=== PATIENT | female | born 1935 | race Caucasian/White ===

== ENCOUNTER 2016-06-01 05:55 | Emergency (ER) | payer MEDICARE ==
[~2016-06-01] VITALS: Ht 160 cm; Wt 68.0 kg
[~2016-06-01 05:55] MED LIST: ASPIRIN81 M1 PO; CALCARB 600 W/V1 TA1 PO; CALCIUM 500 W/V1 TAB PO; CALCIUM PO; CAPOTEN25 MG PO; CAPOTEN50 MG PO; CRESTOR10 MG PO; CRESTOR40 MG PO; DARVOCET N 1001 TAB PO; FLEXERIL5 MG PO; HYDROCODONE BIT1 T11 PO; LEADER ASPIRIN325 MG PO; LIPITOR20 MG PO; LISINOPRIL20 MG PO; LOMOTIL 0.025 M1 TAB PO; LOPRESSOR25 MG PO; MEDROL DOSEPAK4 MG PO; MOM30 M1 PO; MOTRIN800 MG PO; TUMS 500500 MG PO; TYLENOL500 MG PO; ULTRAM50 MG PO; VICODIN 500 MG-1 TAB PO; VITAMIN D50000 I2 PO; VITAMIN D50000 IU PO; VOLTAREN50 M1 PO; XANAX0.25 MG PO; XANAX0.5 MG PO; Zofran4 MG PO
[2016-06-01 06:26] LABS: BASO % 0.1 % (0.0-1.0); HEMATOCRIT 35.8 % (37.0-47.0); HEMOGLOBIN 12.4 g/dl (12.0-16.0); LYMPH # 1.1 10*3/uL (1.3-4.4); LYMPH % 14.4 % (27.0-41.0); MEAN CELL VOLUME 101.1 fl (81.0-99.0); MEAN CORPUSCULAR HGB CONC 34.6 g/dl (33.0-37.0); MEAN PLATELET VOLUME 9.4 fl (9.6-12.3); MONO # 0.1 10*3/uL (0.1-1.0); MONO % 1.6 % (3.0-9.0); NEUT # 6.3 10*3/uL (2.3-7.9); NEUT % 83.5 % (47.0-73.0); PLATELET COUNT AUTOMATED 245 10*3/uL (130-400); RED BLOOD COUNT 3.54 10*6/uL (4.10-5.10); RED CELL DISTRI WIDTH 12.3 % (0-14.5); WHITE BLOOD COUNT 7.5 10*3/uL (4.8-10.8)
[2016-06-01 06:33] LABS: INTERNATIONAL NORM RATIO 0.9 (2.0-3.5)
[2016-06-01 06:44] LABS: ALBUMIN 3.4 gm/dl (3.1-4.5); ALKALINE PHOSPHATASE 69 U/L (45-117); BILIRUBIN, TOTAL 0.3 mg/dl (0.2-1.0); BUN 25 mg/dl (7-24); CARBON DIOXIDE 24 mmol/L (21-32); CHLORIDE 106 mmol/L (98-107); EST GLOM FILT AFRICAN AMERICAN > 60 ml/min; GLUCOSE 179 mg/dL (65-99); SGOT/AST 17 IU/L (3-35); SGPT/ALT 16 U/L (12-78); SODIUM 142 mmol/L (136-145); TOTAL PROTEIN 7.1 gm/dL (6.4-8.2)
[2016-06-01 06:52] LABS: MAGNESIUM 2.2 mg/dL (1.5-2.1); THYROID STIM HORMONE (HS) 0.294 uIU/ml (0.358-4.75)
[2016-06-01 09:16] VITALS: BP 147/75
== END 2016-06-01 09:26 | disposition home or self-care (01) ==
LOC: ED 05:55
PROVIDERS: Emergency Medicine Emergency Medical Services
DX: E86.0 Dehydration (principal); R42 Dizziness and giddiness; I10 Essential (primary) hypertension; E78.00 Pure hypercholesterolemia, unspecified; M19.90 Unspecified osteoarthritis, unspecified site; Z79.899 Other long term (current) drug therapy; Z79.82 Long term (current) use of aspirin

== ENCOUNTER → 2016-09-25 | Outpatient (CLI) | payer MEDICARE | END | disposition home or self-care (01) | LOC: ORTHO 00:26 | DX: M17.12 Unilateral primary osteoarthritis, left knee (principal); M25.462 Effusion, left knee; R20.0 Anesthesia of skin ==

== ENCOUNTER → 2017-02-09 | Outpatient (CLI) | payer MEDICARE | END | disposition home or self-care (01) | LOC: RAD 11:14 | DX: M17.12 Unilateral primary osteoarthritis, left knee (principal); M25.462 Effusion, left knee ==

== ENCOUNTER 2017-05-09 10:56 | Inpatient (IN) | payer MEDICARE ==
[~2017-05-09] VITALS: Ht 160 cm; Wt 76.7 kg
--- NOTE | ~2017-05-09 | CON ---
[place], [place] REPORT OF CONSULTATION NAME: STEVE CONTRERAS [facility] #: [id number] UNIT #: [id number] ROOM: 412 DOCTOR: GELY PERALES ED.D (WILBER) BIRTHDATE: [birth year] DOS: 05/11/2017 HISTORY OF PRESENT ILLNESS: The patient is a 81-year-old female who was referred by the hospitalist for competency evaluation. At the present time, this patient is in [facility]. She states she is a and presently resides alone. She does have a son and a daughter. Her daughter was present during the interview. Apparently, her granddaughter is much closer to the patient and helps her make decisions. 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 The patient's family physician is Dr. Delong and her medical history is pertinent for altered mental status, dementia, hypertension, osteoarthritis, vitamin D deficiency and GERD. Her medications include ____, vitamin D, captopril, Aricept, Vistaril, lisinopril, Paxil and Crestor. She denies any significant substance abuse issues. This patient was awake, alert and oriented in all 3 spheres. She had no difficulty answering questions whatsoever. 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 The patient indicates she is not able to go home and wants to either reside with her granddaughter or go to some type of assisted living. The social work professor was in the room and is going to have the patient complete a durable power of erisa attorney for healthcare and the patient requested that her granddaughter be named her healthcare surrogate. Her short and long-term memories were mildly impaired, but overall she did fairly well. DIAGNOSES: Mild neurocognitive disorder -- Alzheimer's disease. RECOMMENDATIONS: In my opinion, at the present time, she is clearly competent to make informed healthcare decisions and wants to execute a power of erisa attorney for healthcare with her granddaughter as her surrogate. Thank you very much for this consult> GELY PERALES ED.D CM:CONSTR:REPORT OF CONSULTATION 1331 05/11/171951 interface
[2017-05-09 11:05] VITALS: BP 118/78
[2017-05-09 12:07] LABS: BASO % 0.5 % (0.0-1.0); EOS # 0.1 10*3/uL (0.0-0.4); EOS % 1.1 % (1.0-4.0); HEMATOCRIT 37.6 % (37.0-47.0); HEMOGLOBIN 12.8 g/dl (12.0-16.0); LYMPH % 23.7 % (27.0-41.0); MEAN CELL VOLUME 101.9 fl (81.0-99.0); MEAN CORPUSCULAR HGB 34.7 pg (27.0-31.0); MEAN PLATELET VOLUME 9.7 fl (9.6-12.3); MONO # 0.7 10*3/uL (0.1-1.0); MONO % 8.1 % (3.0-9.0); NEUT # 5.7 10*3/uL (2.3-7.9); NEUT % 66.1 % (47.0-73.0); PLATELET COUNT AUTOMATED 231 10*3/uL (130-400); RED BLOOD COUNT 3.69 10*6/uL (4.10-5.10); RED CELL DISTRI WIDTH 13.1 % (0-14.5); WHITE BLOOD COUNT 8.5 10*3/uL (4.8-10.8)
[2017-05-09 12:14] LABS: INTERNATIONAL NORM RATIO 0.9 (2.0-3.5)
[2017-05-09 12:21] LABS: ALBUMIN 3.6 gm/dl (3.1-4.5); ALKALINE PHOSPHATASE 79 U/L (45-117); BUN 16 mg/dl (7-24); CHLORIDE 110 mmol/L (98-107); CREATININE 0.88 mg/dL (0.55-1.02); POTASSIUM 4.1 mmol/L (3.5-5.1); SGOT/AST 17 IU/L (3-35); SGPT/ALT 18 U/L (12-78); SODIUM 143 mmol/L (136-145); TOTAL PROTEIN 7.1 gm/dL (6.4-8.2)
--- NOTE | 2017-05-09 13:12 | NUR ---
BED ASSIGNED 415/2 NOW. [facility] UNABLE TO ACCEPT REPORT AT THIS TIME, AWAITING RETURN CALL.
--- NOTE | 2017-05-09 13:18 | NUR ---
ZITHROMAX INFUSING AT TIME OF ADMISSION.
--- NOTE | 2017-05-09 13:35 | NUR ---
A 81, admitted to , under the services of MEENA High DO with a diagnosis of PNEUMONIA. Chief complaint is MENTAL STATUS CHANGE, COUGHING. Patient arrived via stretcher from ER. Monitor applied. Initial assessment completed. Vital signs taken and recorded. MEENA HIGH DO notified of admission to the unit. Orders received. See assessment for past medical history, medications and allergies. Patient and/or family oriented to unit. [address] visitation policy reviewed. Clothing/patient valuable form completed. ROSS NAJERA
[2017-05-09 13:37] VITALS: BP 126/67
[2017-05-09] MEDS ORDERED: ARICEPT5 M1 PO (14:02)
[2017-05-09] MEDS ORDERED: CAPTOPRIL25 MG PO (14:02)
[2017-05-09] MEDS ORDERED: PAXIL10 MG PO (14:03)
[2017-05-09] MEDS ORDERED: VISTARIL50 MG PO (14:03)
[2017-05-09] MEDS ORDERED: TESSALON PERLE100 MG PO (14:05)
--- NOTE | 2017-05-09 14:05 | NUR ---
MEDS VERIFIED WITH [facility]. DR STORY NOTIFIED.
[2017-05-09 16:00] VITALS: BP 137/56
--- NOTE | 2017-05-09 16:31 | NUR ---
PT RECEIVED FLU AND PNEUMONIA VACCINES.
[2017-05-09 18:09] LABS: BILIRUBIN NEGATIVE (NEGATIVE); BLOOD TRACE-LYSED (NEGATIVE); CLARITY SL CLOUDY (CLEAR); COLOR YELLOW (YELLOW); GLUCOSE NEGATIVE (NEGATIVE); KETONE NEGATIVE (NEGATIVE); LEUKO ESTERASE TRACE (NEGATIVE); NITRITE POSITIVE (NEGATIVE); PH 6.5 (5.0-9.0); SPECIFIC GRAVITY <= 1.005 (1.005-1.030); UROBILINOGEN 0.2 E.U./dl (0.2-1.0)
[2017-05-09 18:16] LABS: BACTERIA 2+; URINE AMPHETAMINES < 1000 (1000ng/ml); URINE BARBITURATES < 200 (200ng/ml); URINE BENZODIAZEPINES < 200 (200ng/ml); URINE CANNABINOIDS (THC) < 50 (50ng/ml); URINE COCAINE < 300 (300ng/ml); URINE METHADONE < 300 (300ng/ml); URINE OPIATES < 300 (300ng/ml)
[2017-05-09 18:30] LABS: URINE PHENCYCLIDINE < 25 (25ng/ml)
[2017-05-09 20:00] VITALS: BP 122/74
--- NOTE | 2017-05-09 22:14 | NUR ---
AT THIS TIME. PATIENT RIPPED IV STATED SHE HAD TO GO TO THE BATHROOM SO BAD AND COULDN'T WAIT. IV RESTARTED IN LEFT AC #22 GAUGE. TOLERATED WELL. IV FLUIDS INFUSING AGAIN WITHOUT DIFFICULTY. CALL LIGHT WITHIN REACH
[2017-05-10] VITALS: BP 137/74
--- NOTE | 2017-05-10 00:17 | NUR ---
DR. MORENO NOTIFIED OF PATIENT CONTINUING TO RIP IV OUT TO GO TO BATHROOM. INFORMED HIM THAT PATIENT IS RECIEVING FLUIDS AT 80 AN HOUR AND IS HERE FOR PNEUMONIA. STATED THAT THE PATIENT HAS NO WBC COUNT, NO ELEVATED LACTIC ACID AND A NORMAL BUN AND CREATININE, THIS NURSE ASKED IF THERE WOULD BE ANY WAY THAT THE FLUIDS CAN BE STOPPED. DR. MORENO STATED THAT HE WOULD STOP THE FLUIDS
--- NOTE | 2017-05-10 02:11 | NUR ---
24 HR chart check completed.
[2017-05-10 07:24] LABS: BASO % 0.6 % (0.0-1.0); EOS # 0.2 10*3/uL (0.0-0.4); EOS % 3.1 % (1.0-4.0); HEMATOCRIT 33.4 % (37.0-47.0); HEMOGLOBIN 11.4 g/dl (12.0-16.0); LYMPH % 28.4 % (27.0-41.0); MEAN CELL VOLUME 103.7 fl (81.0-99.0); MEAN CORPUSCULAR HGB 35.4 pg (27.0-31.0); MEAN CORPUSCULAR HGB CONC 34.1 g/dl (33.0-37.0); MEAN PLATELET VOLUME 10.1 fl (9.6-12.3); MONO # 0.6 10*3/uL (0.1-1.0); MONO % 8.9 % (3.0-9.0); NEUT # 4.2 10*3/uL (2.3-7.9); NEUT % 58.9 % (47.0-73.0); PLATELET COUNT AUTOMATED 193 10*3/uL (130-400); RED BLOOD COUNT 3.22 10*6/uL (4.10-5.10); WHITE BLOOD COUNT 7.1 10*3/uL (4.8-10.8)
[2017-05-10 07:55] LABS: BUN 14 mg/dl (7-24); CHLORIDE 111 mmol/L (98-107); CHOLESTEROL 155 mg/dL (<200); CREATININE 0.68 mg/dL (0.55-1.02); PHOSPHOROUS 2.3 mg/dL (2.5-4.9); SODIUM 143 mmol/L (136-145); TRIGLYCERIDES 151 mg/dl (<150); VLDL CHOLESTEROL 30 mg/dL (6-40)
[2017-05-10 08:00] VITALS: BP 122/80
--- NOTE | 2017-05-10 08:00 | NUR ---
RESTING COMFORTABLY, PT ANSWERS ALL ASSESSMENT QUESTIONS APPROPRIATELTY, DENIES C/O DISCOMFORT AT PRESENT TIME. SEE SHIFT ASSESSMENT. ASSISTED TO BR, GAIT STEADY. BEDALARM & YVROSEBANDED FOR PT SAFETY.
[2017-05-10 08:04] LABS: HDL CHOLESTEROL 48 mg/dl (40-60); LDL CHOLESTEROL 77 mg/dL (9-159); THYROID STIM HORMONE (HS) 0.497 uIU/ml (0.358-4.75)
--- NOTE | 2017-05-10 08:30 | NUR ---
Silverware Etcher in to talk to patient. Patient states lives at her daughter's home. There are 0 steps in the home. Physician: Dr. Selina Delong Pharmacy: [facility] health services: none Patient's level of ADLs: INDEPENDENT Patient has working utilities: yes DME: none Follow-up physician's appointment after d/c: will be made by hospitalist nurse director upon discharge Does patient want to access PORTAL?: no Discharge plan discussed with patient. She currently lives with her daughter. When looking through the medical record granddaughter stated the patient doesn't have any heat or water at her home that is why she is living with her daughter. Patient states she does have water and heat at her house but both the daughter and the patient are widows and keep each other company. Discussed a SNF and home health and pt adamantly refuses. She is independent in her ADLs and ambulation. She denies any needs at this time. When medically stable she will be discharged to home with her daughter. ALLYSSA HENRY
--- NOTE | 2017-05-10 11:07 | NUR ---
DR RIVAS IN TO SEE PT.
--- NOTE | 2017-05-10 11:19 | NUR ---
Discussed case with Dr. Fosetr and social media campaign manager. mastic worker to follow.
--- NOTE | 2017-05-10 11:30 | NUR ---
EDWIN SPOKE WITH WITH VALERIE MANUEL. KALEB INQUIRED ABOUT GETTING A DPOAHC FOR PT. EDWIN EXPLAINED THE PROCESS TO KALEB. KALEB STATED THAT PT WAS INCOMPOTENT DUE TO DEMENTIA. EDWIN EXPLAINED THAT IF PT WAS DEEMED INCOMPOTENT THEN PT COULD NOT SIGN A DOPAHC. KALEB WOULD HAVE TO FILE FOR GUARDIANSHIP OF PT. EDWIN SUGGESTED REQUESTING AN COMPOTENCY EVAL FIRST. EDWIN ASKED MAGGI TO STOP AT OFFICE WHEN SHE GOT TO HOSPITAL.
--- NOTE | 2017-05-10 11:37 | NUR ---
PHYSICAL THERAPY PAtient evaluated on 4, full evaluation to follow. PAtient 100 % (I) all functional mobility. No PT skills/needs. D/c PT after evaluation, patient agrees. PAtient is low complexity via chart review, tests and evaluation: 55803.
--- NOTE | 2017-05-10 11:48 | NUR ---
MESSAGE LEFT ON ANSWERING LOUIS FOR WILBER PERALES CONSULT.
--- NOTE | 2017-05-10 11:49 | NUR ---
Occupational Therapy evaluation completed this date on 4 with full eval to follow. Precautions include low complexity level 04014, impaired memory, impaired orientation to time. Patient demonstrates independence in self care and functional mobility, xfers. Recommend D/C to home with family supervision/assist for IADLs or assisted living placement. No further OT indicated at this time. Thank you for this referral. Jenny Del Rio OTR/l
[2017-05-10 12:00] VITALS: BP 119/59
--- NOTE | 2017-05-10 12:22 | NUR ---
SPOKE WITH STAFF AT DR IRELAND OFFICE REGARDING CONSULT.
--- NOTE | 2017-05-10 13:16 | NUR ---
PER CODEY AT DR IRELAND OFFICE, HE WILL BE IN TOMORROW TO SEE PT.
--- NOTE | 2017-05-10 15:38 | NUR ---
EDWIN SPOKE WTIH PT ABOUT DISCHARGE PLANS. EDWIN EXPLAINED THAT DR KEITH LIKE PT TO GO [facility] TO ASSIST WITH IV MEDICATIONS. PT AGREED TO SHORT TERM STAY IF IT WAS NEEDED. PT STATED THAT SHE LIVES WITH HER DTR AND WILL RETURN TO DTR'S HOME TO LIVE. SW INFORMED PT ABOUT DIFFFERENT SNF IN THE AREA. SW WILL SPEAK WITH FAMILY AGAIN TO SEE IF THERE IS MONEY TO PAY PRIVATELY FOR NH.
[2017-05-10 16:00] VITALS: BP 138/77
--- NOTE | 2017-05-10 17:28 | NUR ---
AMBULATORY IN ROOM, GAIT STEADY. PT IS ALERT & ORIENTED AT PRESENT TIME.
[2017-05-10 20:00] VITALS: BP 117/54
[2017-05-11] VITALS: BP 149/62
[2017-05-11 07:22] LABS: BASO % 0.6 % (0.0-1.0); EOS # 0.2 10*3/uL (0.0-0.4); HEMATOCRIT 33.2 % (37.0-47.0); HEMOGLOBIN 11.3 g/dl (12.0-16.0); LYMPH # 2.3 10*3/uL (1.3-4.4); LYMPH % 32.8 % (27.0-41.0); MEAN CELL VOLUME 103.4 fl (81.0-99.0); MEAN CORPUSCULAR HGB 35.2 pg (27.0-31.0); MEAN PLATELET VOLUME 9.9 fl (9.6-12.3); MONO # 0.6 10*3/uL (0.1-1.0); MONO % 8.7 % (3.0-9.0); NEUT # 3.8 10*3/uL (2.3-7.9); NEUT % 54.5 % (47.0-73.0); PLATELET COUNT AUTOMATED 202 10*3/uL (130-400); RED BLOOD COUNT 3.21 10*6/uL (4.10-5.10); RED CELL DISTRI WIDTH 12.8 % (0-14.5); WHITE BLOOD COUNT 6.9 10*3/uL (4.8-10.8)
[2017-05-11 07:37] LABS: BUN 13 mg/dl (7-24); CHLORIDE 111 mmol/L (98-107); CREATININE 0.69 mg/dL (0.55-1.02); PHOSPHOROUS 2.5 mg/dL (2.5-4.9); SODIUM 143 mmol/L (136-145)
[2017-05-11 08:00] VITALS: BP 118/72
--- NOTE | 2017-05-11 08:00 | NUR ---
SLEEPING, AROUSES EASILY WITH NO VOICED C/O OFFERED. SEE SHIFT ASSESSMENT.
--- NOTE | 2017-05-11 08:30 | NUR ---
Molding Sander in to see patient. She is sitting on the edge of her bed eating breakfast. She denies any home needs at this time. Discharge plan undecided at this time. yard warehouse worker following. Daughter in to see.
--- NOTE | 2017-05-11 08:43 | NUR ---
DR PERALES IN TO SEE PT, PTS DTR CONOR AT BEDSIDE.
--- NOTE | 2017-05-11 08:50 | NUR ---
SW SPOKE WITH PT, DTR, AND DR. PERALES. DR. PERALES SAID PT IS OK TO SIGN DPOAHC NOW DURING THE DAY. PT ADMITTED THAT SHE BECOMES MORE CONFUSED IN THE EVENING. DR. PERALES FEELS THAT PT CAN NO LIONGER LIVE INDEPENDENTLY. PT AGREED TO ASSISTED LIVING ASSESSMENT. SW WILL MAKE REFERRAL TO [facility] FOR ASSESSMENT. PT WANTS GRANDDAUGHTER KALEB TO ASSIST HER WITH DECISION MAKING.
[2017-05-11] MEDS ORDERED: DOXYCYCLINE100 M3 PO (10:10)
[2017-05-11] MEDS ORDERED: B12,B-12,B 12500 MC1 PO (10:10)
[2017-05-11] MEDS ORDERED: CEFTRIAXONE1 GM IV (11:01)
--- NOTE | 2017-05-11 11:04 | NUR ---
EDWIN FA[facility]ED [facility] IV ANITIOTICS. EDWIN NOTIFIED MANUEL THAT REFERRAL WAS COMING.
[2017-05-11 12:00] VITALS: BP 137/65
--- NOTE | 2017-05-11 12:16 | NUR ---
EDWIN SPOKE WITH DTR AND PT ABOUT DISCHARGE PLANS. DTR STATED THAT PT CAN NOT RETURN TO LIVE WITH HER DUE TO FEARING PT WILL HARM HER. PT DOES NOT WANT TO RETURN TO DTR'S HOME. EDWIN GAVE PT COPY OF DPOAHC FOR AND EXPLAINED HOW TO FILL IT OUT. PT SAID THAT SHE WILL GET GRANDDAUGHTER KALEB TO FILL IT OUT. KALEB IS IN SCHOOL NOW FOR NURSING. KALEB WILL COME AFTER SCHOOL AT 5PM. EDWIN ENCOURAGED FAMILY TO APPLY FOR MEDICIAD FOR SHELTER OR ASSISTED LIVING WAIVER. EDWIN EXPLAINED AGAIN THAT PT DOES NOT QULAIFY FOR SKILLED CARE AT NURSING FACILITY UNLESS SHE IS ON IV ANTIBIOTICS. PT AGREED TO GO TO SNF IF NEEDED. PT DOES NOT HAVE HEAT OR ELCTRICITY AT HER HOME THAT IS WHY SHE WAS STAYING WITH DTR. EDWIN WILL CHECK WITH ABOUT NEED FR IV ANTIBIOTICS FOR SNF PLACEMENT. EDWIN WILL MAKE REFERRAL TO [facility] FOR ASSISTED LIVING ASSESSMENT.
--- NOTE | 2017-05-11 12:26 | NUR ---
EDWIN SPOKE WITH DR. MCCRARY ABOUT DISCHARGE PLANS. DR. MCCRARY WILL WRITE ORDER FOR 5 DAY IV ANTIBIOTIC FOR PT TO GO SNF. EDWIN WILL MAKE REFERRAL TO [facility].
--- NOTE | 2017-05-11 12:32 | NUR ---
SW INFORMED PT THAT DR. MCCRARY WILL ORDER 5 DAYS OF IV ANTIBOTICS SO PT CAN GO TO SKILLED. PT AGREED TO GO FOR THE TREATMENT. EDWIN EXPLAINED THAT [facility] FAMILY TIME TO FIGURE OUT WHERE PT WILL GO FROM THERE. SW REMINDED PT TO HAVE GRANDDAUGHTER FILL OUT DPOAHC AND APPLY FOR MEDICIAD. PT VOICED UNDERSTANDING.
--- NOTE | 2017-05-11 12:33 | NUR ---
SPOKE WITH PTS KALEB PADILLA, WHO STATES "WE REALLY NEED TO SEE IF WE CAN FIND PLACEMENT FOR MY GRANDMOTHER. SHE IS AWFUL WITH MY MOM" AND GOES ON TO STATE THAT STEVE IS VERBALLY AGGRESSIVE WITH HER CHILDREN & HER MOTHER. AFTER SPEAKING WITH ZULAY DURAND FOR SS, THIS RN LEFT MSG FOR FREDA HERNANDEZ TO CALL ME REGARDING PLAN OF CARE/DISCHARGE INSTRUCTIONS FOR THIS PT.
--- NOTE | 2017-05-11 12:34 | NUR ---
EDWIN LEFT FOR [facility] - HOSPITALIST OFFICE THAT PT NEEDED A 3 DAY STAY TO QULAIFY FOR SKILLED AND WOULD MEET THAT CRITERIA AND BE READY 05/12/17.
--- NOTE | 2017-05-11 14:08 | NUR ---
[facility] DECLINED REFERRAL DUE TO POSSIBLE ELOPEMNET AND AGRESSIVE BEHAVIORS.
--- NOTE | 2017-05-11 14:09 | NUR ---
EDWIN FAXED REFERRAL TO [facility]. EDWIN SPOKE WITH WOOD ENGRAVER MANJU. MANJU RACHEL LOOK AT REFERRAL AND CALL BACK. EDWIN EXPLAINED THAT PT NEEDS ASSISTANCE WITH APPLYING FOR MEDICAID AND ASSISTED LIVING WAIVER. MANJU STATED THAT THEY WILL ASSIST PT WITH THIS ALSO. EDWIN EXPLAINED THAT PT ONLY TRUST S GRANDDAUGHTER KALEB. DAUGHTER AND PT [place] SNOT GET ALONG. MANJU WILL HAVE NURSING LOOK AT IT AND CALL BACK.
--- NOTE | 2017-05-11 14:39 | NUR ---
EDWIN NOTIFIED EPIFANIO NUNES THAT PT WOULD BE COMING WITH A PERIPERAL LINE NOT A PIC LINE FOR THE ANTIBIOTICS. MANJU WILL LET NURSING KNOW AND CALL BACK IN A FEW MINUTES.
--- NOTE | 2017-05-11 14:42 | NUR ---
EDWIN RECEIVED CALL FROM DTR CONOROctober REPORTING THAT PT'S MONEY IS AT THE [facility]. THEL OCTOBER HAD BROUGHT THE PT HER POURSE AND SOME CLOTHES. SW WILL REMIND PT THAT THE GRANDDAUGHTER KALEB HAS HER MONEY.
--- NOTE | 2017-05-11 15:58 | NUR ---
EDWIN SPOKE WITH GRANDDAUGHTER KALEB WHO IS ABLE TO TRANSPORT PT AROUND 11AM. TO [facility] ON Sunday05/12/17.
[2017-05-11 16:00] VITALS: BP 103/70
--- NOTE | 2017-05-11 16:09 | NUR ---
SW NOTIFIED CERTIFIED ACTIVITIES DIRECTOR THAT PT WAS SET UP TO GO TO [facility] FOR 5 DAYS OF IV ANTIBIIOTICS WITH PHERPERIAL LINE. GRANDDAUGHTER KALEB TO PICK P PT AROUND 11A.M.
--- NOTE | 2017-05-11 16:10 | NUR ---
SW COMPLETED PASR IN HENS.
--- NOTE | 2017-05-11 16:14 | NUR ---
SW NOTIFED PT THAT GRANDDAUGHTER KALEB PICKING HER UP AT 11AM SUNDAY TO GO TO [facility] FOR 5 DAYS OF IV ANITBIOITCS. PT SAID THAT SHE TALKED WITH KALEB.
--- NOTE | 2017-05-11 18:11 | NUR ---
NO OBVIOUS CHANGES NOTED THIS SHIFT.
[2017-05-11 20:00] VITALS: BP 111/58
[2017-05-12] VITALS: BP 131/61
[2017-05-12 08:00] VITALS: BP 114/72
--- NOTE | 2017-05-12 10:57 | NUR ---
PT TRANSPORTED TO [facility] BY HER [facility]. REPORT CALLED TO NURSE. HEPLOCK INTACT TO LEFT ANTECUBITAL. DISCHARGE PACKET TO GIVEN TO GRANDDAUGHTER.
== END 2017-05-12 10:57 | disposition other institution (70) | DRG 871 ==
LOC: ED 10:56 → EDHOLD 12:45 → 4E 12:45 → EDHOLD 12:59 → 4E 13:10
PROVIDERS: Internal Medicine Nephrology; Physician Assistant; ADMIT Internal Medicine
DX: A41.9 Sepsis, unspecified organism (principal); J18.9 Pneumonia, unspecified organism; G30.9 Alzheimer's disease, unspecified; E87.8 Other disorders of electrolyte and fluid balance, not elsewhere classified; F02.80 Dementia in other diseases classified elsewhere, unspecified severity, without behavioral disturbance, psychotic disturbance, mood disturbance, and anxiety; E78.5 Hyperlipidemia, unspecified; I10 Essential (primary) hypertension; K21.9 Gastro-esophageal reflux disease without esophagitis; M19.90 Unspecified osteoarthritis, unspecified site; D72.810 Lymphocytopenia; E66.3 Overweight; E55.9 Vitamin D deficiency, unspecified; Z79.82 Long term (current) use of aspirin; Z90.710 Acquired absence of both cervix and uterus; Z94.7 Corneal transplant status; Z82.49 Family history of ischemic heart disease and other diseases of the circulatory system; Z81.8 Family history of other mental and behavioral disorders; Z83.3 Family history of diabetes mellitus; Z80.9 Family history of malignant neoplasm, unspecified; Z68.29 Body mass index [BMI] 29.0-29.9, adult

== ENCOUNTER 2018-06-10 12:21 | Emergency (ER) | payer MEDICARE, MEDICAID ==
[~2018-06-10] VITALS: Ht 160 cm; Wt 68.0 kg
--- NOTE | ~2018-06-10 | EKG ---
[place], [place] ELECTROCARDIOGRAM REPORT NAME: STEVE CONTRERAS UNIT #: [id number] ROOM: DOCTOR: EPIPHANY DRAFT REPORT BIRTHDATE: [birth year] [facility] Test Date: 2018-06-10 Test Time: 12:43:13 Pat Name: STEVE CONTRERAS Department: Room: Gender: F Tile Fitter: : 1935 Requested By: MARIO DAVIS Order Number: [id number] Reading MD: Measurements Intervals [place] Rate: 79 P: 67 HI: 146 QRS: -26 QRSD: 78 T: 41 QT: 384 QTc: 441 Interpretive Statements Sinus rhythm Borderline left axis deviation Low voltage, precordial leads Abnormal R-wave progression, early transition Borderline ST depression, anterolateral leads Baseline wander in lead(s) V3 Compared to ECG 01/03/2018 14:05:24 Low QRS voltage now present ST (T wave) deviation now present Ventricular premature complex(es) no longer present CM:EKGRPT:ELECTROCARDIOGRAM REPORT [id number] MARIO DAVIS EPIPHANY DRAFT REPORT MARIO DAVIS
[~2018-06-10 12:21] MED LIST changes: +ARICEPT5 M1 PO; +B12,B-12,B 12500 MC1 PO; +CALCIUM 500 +1 EAC1 PO; -CALCIUM PO; +CAPTOPRIL25 MG PO; +CEFTRIAXONE1 GM IV; +CIPROFLOXACIN250 MG PO; +DOXYCYCLINE100 M3 PO; +MILK OF MA400 MG/51 PO; +PAXIL10 MG PO; +TESSALON PERLE100 MG PO; +VISTARIL50 MG PO
[2018-06-10 12:23] VITALS: BP 141/73
[2018-06-10 12:50] LABS: BASO # 0.1 10*3/uL (0.0-0.1); BASO % 0.7 % (0.0-1.0); EOS # 0.1 10*3/uL (0.0-0.4); EOS % 1.3 % (1.0-4.0); HEMATOCRIT 35.4 % (37.0-47.0); HEMOGLOBIN 11.4 g/dl (12.0-16.0); LYMPH # 3.5 10*3/uL (1.3-4.4); LYMPH % 47.3 % (27.0-41.0); MEAN CELL VOLUME 95.2 fl (81.0-99.0); MEAN CORPUSCULAR HGB 30.6 pg (27.0-31.0); MEAN CORPUSCULAR HGB CONC 32.2 g/dl (33.0-37.0); MEAN PLATELET VOLUME 9.3 fl (9.6-12.3); MONO # 0.5 10*3/uL (0.1-1.0); MONO % 6.1 % (3.0-9.0); NEUT # 3.3 10*3/uL (2.3-7.9); NEUT % 44.2 % (47.0-73.0); PLATELET COUNT AUTOMATED 330 10*3/uL (130-400); RED BLOOD COUNT 3.72 10*6/uL (4.10-5.10); RED CELL DISTRI WIDTH 13.6 % (0-14.5); WHITE BLOOD COUNT 7.5 10*3/uL (4.8-10.8)
[2018-06-10 13:07] LABS: ALKALINE PHOSPHATASE 89 U/L (45-117); BUN 14 mg/dl (7-24); CHLORIDE 107 mmol/L (98-107); CREATININE 0.94 mg/dL (0.55-1.02); SGOT/AST 29 IU/L (3-35); SGPT/ALT 23 U/L (12-78); SODIUM 139 mmol/L (136-145); TOTAL PROTEIN 7.2 gm/dL (6.4-8.2)
[2018-06-10 13:13] LABS: TROPONIN I < 0.015 ng/ml (<0.045)
[2018-06-10 13:13] LABS: BILIRUBIN NEGATIVE (NEGATIVE); BLOOD TRACE-LYSED (NEGATIVE); CLARITY SL CLOUDY (CLEAR); COLOR YELLOW (YELLOW); GLUCOSE NEGATIVE (NEGATIVE); KETONE TRACE (NEGATIVE); LEUKO ESTERASE 1+ (NEGATIVE); NITRITE POSITIVE (NEGATIVE); SPECIFIC GRAVITY 1.025 (1.005-1.030); UROBILINOGEN 0.2 E.U./dl (0.2-1.0)
[2018-06-10] MEDS ORDERED: FLONASE ALLERG9.9 ML NAS (13:15)
[2018-06-10] MEDS ORDERED: CLARITIN10 MG PO (13:15)
[2018-06-10] MEDS ORDERED: PREDNISONE10 MG PO (13:15)
[2018-06-10] MEDS ORDERED: TESSALON PERLE100 M1 PO (13:15)
[2018-06-10 13:19] LABS: BACTERIA 3+
[2018-06-10] MEDS ORDERED: VIBRAMYCIN100 MG PO (13:42)
== END 2018-06-10 14:09 | disposition other institution (70) ==
LOC: ED 12:21
PROVIDERS: Nurse Practitioner Family
DX: J20.9 Acute bronchitis, unspecified (principal); N39.0 Urinary tract infection, site not specified; I10 Essential (primary) hypertension; M19.90 Unspecified osteoarthritis, unspecified site; Z79.899 Other long term (current) drug therapy

== ENCOUNTER 2018-09-20 17:27 | Emergency (ER) | payer MEDICARE, OTHER ==
[~2018-09-20] VITALS: Ht 162.5 cm; Wt 79.8 kg
--- NOTE | ~2018-09-20 | EKG ---
[place], [place] ELECTROCARDIOGRAM REPORT NAME: STEVE CONTRERAS UNIT #: [id number] ROOM: DOCTOR: EPIPHANY DRAFT REPORT BIRTHDATE: [birth year] [facility] Test Date: 2018-09-20 Test Time: 17:48:21 Pat Name: STEVE CONTRERAS Department: Room: Gender: F [employer] Media Mixer: 18 : 1935 Requested By: JOE ULLOA DNP Order Number: [id number] Reading MD: Arabella Jin MD Measurements Intervals [place] Rate: 82 P: 36 WA: 150 QRS: -32 QRSD: 79 T: 26 QT: 386 QTc: 451 Interpretive Statements Sinus rhythm Multiform ventricular premature complexes Abnormal R-wave progression- possible posterior infarctiopn Probable left ventricular hypertrophy Inferior infarct, old Baseline wander in lead(s) II,III,aVF Compared to ECG 06/10/2018 12:43:13 Ventricular premature complex(es) now present Myocardial infarct finding now present ST (T wave) deviation no longer present Electronically Signed On 09-26-2018 14:27:18 PDT by Arabella Jin MD CM:EKGRPT:ELECTROCARDIOGRAM REPORT [id number] JOE ULLOA DNP EPIPHANY DRAFT REPORT JOE ULLOA DNP
[~2018-09-20 17:27] MED LIST changes: +CLARITIN10 MG PO; +FLONASE ALLERG9.9 ML NAS; +PREDNISONE10 MG PO; +TESSALON PERLE100 M1 PO; +VIBRAMYCIN100 MG PO
[2018-09-20 17:28] VITALS: BP 148/57
[2018-09-20 17:53] LABS: BASO % 0.4 % (0.0-1.0); EOS # 0.1 10*3/uL (0.0-0.4); EOS % 1.1 % (1.0-4.0); HEMATOCRIT 29.1 % (37.0-47.0); LYMPH # 2.7 10*3/uL (1.3-4.4); LYMPH % 36.8 % (27.0-41.0); MEAN CELL VOLUME 89.8 fl (81.0-99.0); MEAN CORPUSCULAR HGB 27.8 pg (27.0-31.0); MEAN CORPUSCULAR HGB CONC 30.9 g/dl (33.0-37.0); MONO # 0.8 10*3/uL (0.1-1.0); MONO % 10.1 % (3.0-9.0); NEUT # 3.8 10*3/uL (2.3-7.9); NEUT % 51.2 % (47.0-73.0); PLATELET COUNT AUTOMATED 280 10*3/uL (130-400); RED BLOOD COUNT 3.24 10*6/uL (4.10-5.10); RED CELL DISTRI WIDTH 15.7 % (0-14.5); WHITE BLOOD COUNT 7.4 10*3/uL (4.8-10.8)
[2018-09-20 18:03] LABS: ACT PARTIAL THROMBO TIME 22.1 SECONDS (20.8-31.5); INTERNATIONAL NORM RATIO 0.9 (2.0-3.5)
[2018-09-20 18:08] LABS: ALBUMIN 3.4 gm/dl (3.1-4.5); ALKALINE PHOSPHATASE 91 U/L (45-117); BUN 20 mg/dl (7-24); CHLORIDE 106 mmol/L (98-107); CREATININE 0.93 mg/dL (0.55-1.02); LIPASE 158 U/L (73-393); POTASSIUM 3.8 mmol/L (3.5-5.1); SGOT/AST 18 IU/L (3-35); SGPT/ALT 19 U/L (12-78); SODIUM 139 mmol/L (136-145)
[2018-09-20 18:10] LABS: TROPONIN I < 0.015 ng/ml (<0.045)
[2018-09-20 20:00] LABS: BILIRUBIN NEGATIVE (NEGATIVE); BLOOD TRACE-INTACT (NEGATIVE); CLARITY SL CLOUDY (CLEAR); COLOR YELLOW (YELLOW); GLUCOSE NEGATIVE (NEGATIVE); KETONE NEGATIVE (NEGATIVE); LEUKO ESTERASE NEGATIVE (NEGATIVE); NITRITE POSITIVE (NEGATIVE); SPECIFIC GRAVITY 1.025 (1.005-1.030); UROBILINOGEN 0.2 E.U./dl (0.2-1.0)
[2018-09-20 20:10] LABS: BACTERIA 4+; CALCIUM OXALATE CRYSTALS 1+; WBC 21-30 wbc/hpf (0-5)
[2018-09-20] MEDS ORDERED: CEPHALEXIN500 M1 PO (21:40)
== END 2018-09-20 21:47 | disposition other institution (70) ==
LOC: ED 17:27
PROVIDERS: Nurse Practitioner Family
DX: N39.0 Urinary tract infection, site not specified (principal); F03.90 Unspecified dementia, unspecified severity, without behavioral disturbance, psychotic disturbance, mood disturbance, and anxiety; I10 Essential (primary) hypertension; K21.9 Gastro-esophageal reflux disease without esophagitis; E78.5 Hyperlipidemia, unspecified; M81.0 Age-related osteoporosis without current pathological fracture; Z79.899 Other long term (current) drug therapy; Z79.2 Long term (current) use of antibiotics; Z90.710 Acquired absence of both cervix and uterus

== ENCOUNTER 2018-12-26 17:10 | Inpatient (IN) | payer MEDICARE, OTHER ==
[~2018-12-26] VITALS: Ht 160 cm; Wt 79.0 kg
--- NOTE | ~2018-12-26 | O ---
[place], [place] OPERATIVE NOTE NAME: STEVE CONTRERAS [facility] #: [id number] UNIT #: [id number] ROOM: 510 DOCTOR: SALAZAR NAGYMARGARET BIRTHDATE: [birth year] DOS: 12/27/2018 PROCEDURE: Today's procedure part of investigation of anemia, guaiac positivity is panendoscopy with colonoscopy. PREMEDICATION: Propofol. SCOPE: Olympus forward-viewing gastroscope Q10 video. REPORT: After putting the patient in left lateral position and application of lubricant to the scope, the scope was introduced. Thereafter, under direct visualization, advanced through the length of esophagus without difficulty. Hiatal hernia was noticed. This is small. Gastric pouch was entered, gastritis, mild degree seen and an antral linear small ulceration was from margin was biopsied. This was located at 9 o'clock position of the pyloric ring. Duodenal bulb, second and third part within normal limits. The patient extubated, tolerated the procedure well. IMPRESSION: Hiatal hernia, small in size. Antral ulcer, linear ulcer, 1 cm proximal to pyloric ring, gastritis, status post biopsy, status post biopsy of antrum. PLAN AND DISCUSSION: Protonix 40 mg daily. We are going to proceed with colonoscopic evaluation. INDICATION: Investigation of GI bleed. PROCEDURE: Today's procedure part of investigation is colonoscopy plus biopsy and tattoo marking. PREMEDICATION: Propofol. SCOPE: Olympus forward-viewing colonoscope 10L video. REPORT: After putting the patient in left lateral position and application of lubricant to the scope, the scope was introduced. Thereafter, under direct visualization, advanced through the length of colon without difficulty. Diverticulosis was appreciated. Base of the cecum explored. At the appendiceal orifice, ileocecal valve was defined. Base of the cecum is covered with cluster of carcinoma tissue, nodular, ulcerated and limited to the cecum anatomy. Photographic series of the base of cecum obtained. A 1.5 mL of tattoo marking was injected, positions were photographed. The patient extubated, tolerated the procedure well. IMPRESSION: Diverticulosis. 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 PLAN AND DISCUSSION: Surgical consultation. Awaiting biopsy results. I will keep the patient on a clear liquid diet until seen by surgical consultation for possible right hemicolectomy. [place], [place] OPERATIVE NOTE NAME: STEVE CONTRERAS UNIT #: [id number] ROOM: 510 DOCTOR: SALAZAR NAGY,MARGARET BIRTHDATE: [birth year] MARGARET LINCOLN MD CM:OPRECORD:OPERATIVE NOTE [id number] MARGARTE LINCOLN MD 12/28/18 0353 interface
--- NOTE | ~2018-12-26 | PR ---
[place], [place] PROGRESS NOTE NAME: STEVE CONTRERAS [facility] #: [id number] UNIT #: [id number] ROOM: 510 DOCTOR: SALINAS BOWLES MD BIRTHDATE: [birth year] DOS: 12/29/2018 SUBJECTIVE: The patient is about the same. PHYSICAL EXAMINATION: GENERAL: Awake and alert, not oriented. VITAL SIGNS: Blood pressure is 132/76, pulse of 62, respirations 16, temperature 98.2. LUNGS: Clear. HEART: Regular. ABDOMEN: Obese. EXTREMITIES: Without any edema. LABORATORY DATA: Glucose is 96, BUN 16, creatinine 1. Sodium 143, potassium 3.9, chloride 111, bicarbonate 29. WBC count is 6.5, hemoglobin 9.4, hematocrit 32.0, platelets 230. Blood cultures, no bacterial growth. Urine culture 100,000 colonies of E. coli, which is sensitive to floxins. ASSESSMENT AND PLAN: 1. Iron deficiency anemia with a cecal carcinoma on colonoscopy. The patient to go to [place] to see Dr. Cota for surgery. 2. Urinary tract infection with Escherichia coli. We will add Ceftin 250 mg p.o. twice daily for 5 days. Plan is to discharge her back to [facility] today. Her hemoglobin is up to 9 with 2 units of blood transfusion. SALINAS BOWLES MD CM:PNTRANS 6 [id number] SALINAS BOWLES MD 12/29/18 1031 interface
--- NOTE | ~2018-12-26 | WRIGHTHP ---
[place], [place] PATIENT HISTORY AND PHYSICAL EXAM NAME: STEVE CONTRERAS [facility] #: [id number] UNIT #: [id number] ROOM: 510 DOCTOR: NELSON ARORA MD BIRTHDATE: [birth year] DOS: 12/26/2018 ADMITTING DIAGNOSES: 1. The patient is an 83-year-old female with history of chronic anemia with gastrointestinal bleed. 2. History of mild protein-calorie malnutrition. 3. Benign essential hypertension. 4. Mixed hyperlipidemia. 5. Gastroesophageal reflux disease and esophagitis. 6. Late onset Alzheimer's type dementia. 7. Vitamin D deficiency. HISTORY OF PRESENT ILLNESS: The patient came to the Emergency Department feeling dizzy and she has had anemia recently and heme-positive stools. The patient's blood pressure was found to be normal, but she had urinary tract infection and also anemia with a hemoglobin which has been varying between 7 and 7.6 recently and was recommended for admission and further management. No chest pain, shortness of breath, no other GI or urinary symptoms, but she has been feeling dizzy, weak, and lightheaded. REVIEW OF SYSTEMS: RESPIRATORY: No increasing shortness of breath. GASTROINTESTINAL: No nausea, vomiting, diarrhea, constipation, but heme-positive stools. CARDIOVASCULAR: No chest pain or palpitation. RESPIRATORY: No increasing shortness of breath or wheezing. FAMILY HISTORY: Noncontributory. HOME MEDICATIONS: The patient is taking Flonase, Lipitor, calcium, B12, Aricept, lisinopril, Paxil. PHYSICAL EXAMINATION: GENERAL: Alert and oriented x 3, in no visible distress. Generalized weakness. VITAL SIGNS: Blood pressure 136/58, heart rate of 73 beats per minute, breathing 16 times per minute, temperature 98.4 degrees Fahrenheit. HEENT AND NECK: Extraocular movements are intact. Sclerae are anicteric. Oral mucosa is moist and clean. No obvious facial weakness. Neck is supple without any lymphadenopathy. No thyromegaly. No JVD. No carotid arterial bruits. LUNGS: Clear to auscultation. No wheezing. No rhonchi. CARDIOVASCULAR SYSTEM: Heart rate is regular in rate and rhythm. S1 and S2 normally audible. No significant murmur or any other abnormal cardiac sounds. ABDOMEN: Soft, nontender. No obvious organomegaly. Bowel sounds are present. No obvious herniation. EXTREMITIES: Without significant cyanosis or edema. Warm to touch. CENTRAL NERVOUS SYSTEM: Alert and oriented x 3. Cranial nerves II-XII are intact. Speech is normal. The patient is able to move all extremities. Normal muscle strength. Deep tendon reflexes are equal on both sides. Plantars were downgoing. [place], [place] PATIENT HISTORY AND PHYSICAL EXAM NAME: STEVE CONTRERAS UNIT #: [id number] ROOM: [facility] DOCTOR: NELSON ARORA MD BIRTHDATE: [birth year] LABORATORY DATA: Hemoglobin 7 to 7.6 two readings. Chest x-ray without any acute abnormality. Fecal occult blood was positive. IMPRESSION: 1. The patient with chronic gastrointestinal bleed and anemia. Dr. Medrano to be consulted for endoscopy. The patient has borderline hemoglobin for requiring blood transfusion. I will follow her hemoglobins. 2. Urinary tract infection. Urine cultures are pending. The patient is to be treated with IV Rocephin. 3. Dizziness and lightheaded. Apparently, because the patient is sick and having a urinary tract infection, the patient is put on a monitor technician. 4. Benign essential hypertension. Blood pressure is to be followed. 5. Late onset Alzheimer's type dementia, treated with Aricept. 6. Major depression, recurrent, mild, treated and controlled with Paxil. NELSON ARORA MD CM:HISPHYS:PATIENT HISTORY AND PHYSICAL EXAMINATION 18 10 NELSON ARORA MD 12/26/182110 interface
--- NOTE | ~2018-12-26 | EKG ---
[place], [place] ELECTROCARDIOGRAM REPORT NAME: STEVE CONTRERAS UNIT #: [id number] ROOM: 510 DOCTOR: MILA DRAFT REPORT BIRTHDATE: [birth year] [facility] Test Date: 2018-12-26 Test Time: 17:46:53 Pat Name: STEVE CONTRERAS Department: Room: 510 Gender: F Supervisor Fur Dressing: : 1935 Requested By: CELESTINE THOMPSON Order Number: [id number] Reading MD: Renetta Sanches MD Measurements Intervals [place] Rate: 71 P: -31 MA: 150 QRS: -28 QRSD: 75 T: 18 QT: 379 QTc: 412 Interpretive Statements Sinus rhythm Borderline left axis deviation Abnormal R-wave progression, early transition Compared to ECG 09/20/2018 17:48:21 Ventricular premature complex(es) no longer present Myocardial infarct finding no longer present Electronically Signed On 12-27-2018 11:34:31 PDT by Renetta Sanches MD CM:EKGRPT:ELECTROCARDIOGRAM REPORT [id number] CELESTINE MARIN DRAFT REPORT CELESTINE THOMPSON DO
--- NOTE | ~2018-12-26 | CON ---
[place], [place] REPORT OF CONSULTATION NAME: STEVE CONTRERAS UNIT #: [id number] ROOM: 510 DOCTOR: MARGARET LINCOLN MD BIRTHDATE: [birth year] DOS: 12/27/2018 GASTROENDOSCOPIC CONSULTATION HISTORY OF PRESENT ILLNESS: This is an 83-year-old patient who has presented with a chief complaint of not feeling well, being anemic. I have been asked for assessment of the drop in H and H with hemoglobin of 7 and 25, microcytic indices, guaiac positivity. Repeated lab results show anemia to be confirmed. Comprehensive metabolic panel: GFR greater than 53. INR 0.9. Chest x-ray has been negative. Basic metabolic, calcium 8. Urine culture greater than 100,000, has been recognized. PAST MEDICAL HISTORY: Protein-calorie malnutrition, hypertension, hyperlipidemia, gastroesophageal reflux, Alzheimer dementia, renal insufficiency. FAMILY HISTORY: Noncontributory. ALLERGIES: Has allergy to no known medication. MEDICATIONS: Medication list reassessed. PAST SURGICAL HISTORY: Hysterectomy, corneal transplant, rotator cuff, cholecystectomy. SOCIAL HISTORY: Nonsmoker, nonalcohol consumer. REVIEW OF SYSTEMS: HEENT: Denies double vision, blurred vision. RESPIRATORY: Denies shortness of breath. CARDIOVASCULAR: Denies chest pain. DIGESTIVE SYSTEM: No hematemesis, no hematochezia. PHYSICAL EXAMINATION: VITAL SIGNS: A stable, pleasantly confused patient. HEENT: Head is normocephalic, nontraumatic. Mouth and buccal mucosa are benign. NECK: Supple. No thyromegaly, no cervical lymphadenopathy. CHEST: Symmetric anatomy, equal expansion. No wheeze, no rhonchi. HEART: Normal sinus rhythm. No gallop, no murmur. ABDOMEN: Soft. No hepato-organomegaly. Bowel sounds present. No pulsatile mass. Obese. EXTREMITIES: Trace pedal edema. NEUROLOGIC: Alert and softly disoriented. LABORATORY DATA: Reviewed. Records reviewed. IMPRESSION: 1. Anemia, epigastric distress. 2. Other adjunctive diagnoses as outlined in paragraph of past medical and [place], [place] REPORT OF CONSULTATION NAME: KORY CONTRERASBRADFORD Israel UNIT #: [id number] ROOM: 510 DOCTOR: MARGARET LINCOLN MD BIRTHDATE: [birth year] surgical history. PLAN: In her advanced age, one has to be concerned about colonic occult carcinoma as a cause of etiology of guaiac positivity, epigastric distress, ruling out peptic ulcer disease, otherwise We are going to organize a colonoscopy and EGD. Thank you very much indeed. MARGARET LINCOLN MD CM:CONSTR:REPORT OF CONSULTATION 1556 12/28/18 0344 interface
--- NOTE | ~2018-12-26 | DS ---
[place], [place] DISCHARGE SUMMARY [id number] UNIT #: [id number] ROOM: 510 DOCTOR: SALINAS BOWLES MD BIRTHDATE: [birth year] DOS: 12/29/2018 DIAGNOSES: 1. Iron deficiency anemia and heme positive stools, status post colonoscopy with cecal carcinoma. 2. Urinary tract infection with Escherichia coli. 3. Alzheimer's dementia, late onset. 4. Benign hypertension. 5. Mixed hyperlipidemia. MEDICATIONS ON DISCHARGE: Calcium with vitamin D 500 mg daily, lisinopril 20 daily, donepezil 5 at bedtime, Paxil 10 daily, vitamin B12 500 mcg daily, atorvastatin 20 daily, fluticasone nasal spray daily, Ceftin 250 twice daily for 5 days. HOSPITAL COURSE: The patient is 83 years old. She has been anemic and on iron supplements, heme positive stools, was admitted to the hospital under Dr. Austin's services and Dr. Medrano was consulted. The patient underwent a colonoscopy, which showed a cecal malignancy. She had a last colonoscopy in 2017, which did not show any pathology. The patient is stable and is not having any new problems. Her daughter has discussed with Dr. Medrano about transferring her to [place]. Dr. Medrano did call Dr. Cota in [place]. The patient is to go back to [facility] and [facility] will call [facility] and make arrangements for her to go there for surgery. Plan [facility]. SALINAS BOWLES MD CM:DISCHARG SALINAS BOWLES MD 12/29/18 0940 interface
--- NOTE | ~2018-12-26 | PR ---
[place], [place] PROGRESS NOTE [id number] UNIT #: [id number] ROOM: 510 DOCTOR: SALINAS BOWLES MD BIRTHDATE: [birth year] DOS: 12/28/2018 SUBJECTIVE: The patient is about the same, does not have any new complaints. The patient is doing fine this morning, resting comfortably, getting her blood transfusion. OBJECTIVE: VITAL SIGNS: Graphic trend shows a pressure of 132/70, pulse of 78, respirations 18, temperature 97.6. LUNGS: Diminished breath sounds. No wheezes, rales or rhonchi heard. HEART: Regular. ABDOMEN: Obese, soft, nontender. EXTREMITIES: Without any edema. ASSESSMENT AND PLAN: 1. The patient with chronic anemia, heme-positive stools. Last colonoscopy of 02/2017 negative, now with a cecal tumor. Awaiting surgical consultation in [place]. Discussed with Dr. Medrano. 2. Anemia. Transfusion has been ordered and after trace transfusion I am planning to send her back to the retirement tomorrow and surgery from [place] will call [facility] and make arrangements for her to be transferred. SALINAS BOWLES MD CM:PNTRANS [id number] SALINAS BOWLES MD 12/28/18 1120 interface
--- NOTE | ~2018-12-26 | PR ---
[place], [place] PROGRESS NOTE NAME: STEVE CONTRERAS UNIT #: [id number] ROOM: 510 DOCTOR: NELSON ARORA MD BIRTHDATE: [birth year] DOS: 12/27/2018 SUBJECTIVE: The patient is going for EGD and colonoscopy for chronic anemia today. Hemoglobin low at 7.1. I will let Dr. Medrano decide about blood transfusion. She is pretty close to requiring one. Urinary tract infection, urine culture is growing heavy gram-negative bacilli being treated with ceftriaxone. OBJECTIVE: GENERAL APPEARANCE: The patient is alert and oriented x 3, in no visible distress. VITAL SIGNS: Blood pressure was 122/65, heart rate of 58 beats per minute, breathing 18 times per minute, temperature 98 degrees Fahrenheit. HEENT AND NECK: Exam within normal limits. CARDIOVASCULAR SYSTEM: Heart rate is regular in rate and rhythm. S1 and S2 normally audible. LUNGS: Clear to auscultation. ABDOMEN: Soft, nontender. No obvious organomegaly. Bowel sounds are present. EXTREMITIES: Without significant cyanosis or edema. IMPRESSION: 1. The patient with chronic gastrointestinal bleed and anemia. Hemoglobin at 7.1. I will let Dr. Medrano decide about blood transfusion. She is also going for EGD and colonoscopy today for further evaluation. 2. Urinary tract infection. Urine culture is pending, being treated with IV Rocephin. 3. Dizziness and lightheadedness, improved with treatment. 4. Benign essential hypertension. Blood pressure is being monitored and treated and staying normal. 5. Late-onset Alzheimer's type dementia, treated with Aricept, stable. 6. Major depression, recurrent, mild, treated and controlled with. DICTATION ENDS HERE [place], [place] PROGRESS NOTE NAME: STEVE CONTRERAS UNIT #: [id number] ROOM: 510 DOCTOR: NELSON ARORA MD BIRTHDATE: [birth year] NELSON ARORA MD CM:PNTRANS [id number] NELSON ARORA MD 12/27/18 2310 interface
[~2018-12-26 17:10] MED LIST changes: +CEPHALEXIN500 M1 PO
[2018-12-26 17:16] VITALS: BP 126/43
[2018-12-26 17:35] LABS: BILIRUBIN NEGATIVE (NEGATIVE); BLOOD 1+ (NEGATIVE); CLARITY CLEAR (CLEAR); COLOR YELLOW (YELLOW); GLUCOSE NEGATIVE (NEGATIVE); KETONE NEGATIVE (NEGATIVE); LEUKO ESTERASE NEGATIVE (NEGATIVE); NITRITE POSITIVE (NEGATIVE); UROBILINOGEN 0.2 E.U./dl (0.2-1.0)
[2018-12-26 17:42] LABS: BASO # 0.1 10*3/uL (0.0-0.1); BASO % 0.7 % (0.0-1.0); EOS # 0.2 10*3/uL (0.0-0.4); EOS % 3.1 % (1.0-4.0); HEMATOCRIT 26.4 % (37.0-47.0); HEMOGLOBIN 7.6 g/dl (12.0-16.0); LYMPH # 2.5 10*3/uL (1.3-4.4); LYMPH % 37.7 % (27.0-41.0); MEAN CELL VOLUME 84.9 fl (81.0-99.0); MEAN CORPUSCULAR HGB 24.4 pg (27.0-31.0); MEAN CORPUSCULAR HGB CONC 28.8 g/dl (33.0-37.0); MEAN PLATELET VOLUME 9.1 fl (9.6-12.3); MONO # 0.6 10*3/uL (0.1-1.0); MONO % 8.6 % (3.0-9.0); NEUT # 3.3 10*3/uL (2.3-7.9); NEUT % 49.6 % (47.0-73.0); PLATELET COUNT AUTOMATED 288 10*3/uL (130-400); RED BLOOD COUNT 3.11 10*6/uL (4.10-5.10); RED CELL DISTRI WIDTH 17.9 % (0-14.5); WHITE BLOOD COUNT 6.7 10*3/uL (4.8-10.8)
[2018-12-26 17:49] LABS: BACTERIA 4+; MUCOUS 1+
[2018-12-26 17:57] LABS: ACT PARTIAL THROMBO TIME 21.7 SECONDS (20.0-32.1); INTERNATIONAL NORM RATIO 0.9 (2.0-3.5)
[2018-12-26 17:59] LABS: ALBUMIN 3.2 gm/dl (3.1-4.5); ALKALINE PHOSPHATASE 98 U/L (45-117); BUN 19 mg/dl (7-24); CHLORIDE 110 mmol/L (98-107); LIPASE 165 U/L (73-393); POTASSIUM 4.2 mmol/L (3.5-5.1); SGOT/AST 15 IU/L (3-35); SGPT/ALT 16 U/L (12-78); SODIUM 140 mmol/L (136-145); TOTAL PROTEIN 6.8 gm/dL (6.4-8.2)
[2018-12-26 18:01] LABS: TROPONIN I < 0.015 ng/ml (<0.045)
[2018-12-26 18:54] VITALS: BP 136/58
--- NOTE | 2018-12-26 19:29 | NUR ---
PT HAS WOUND ON POSTERIOR NECK, IT WAS PHOTOGRAPHED. 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 PT ALSO HAS 1 SMALL SCAB TO MID ABDOMEN, IT IS NOT OPEN- NO PHOTO TAKEN BILATERAL GROIN FOLDS HAVE MILD EXCORIATION BUT NOTHING OPEN NOTED.
--- NOTE | 2018-12-26 19:54 | NUR ---
REPORT GIVEN TO JOSEPH ENRIQUE. PATIENT IS STABLE AND READY FOR TRANSPORT TO INPATIENT ROOM #510 . PT WILL BE TRANSPORTED BY [facility]ARR[facility].
--- NOTE | 2018-12-26 20:00 | NUR ---
SPOKE WITH ASHLEE, NURSE AT [facility]. INFORMED HER THAT PATIENT WOULD BE ADMITTED.
[2018-12-26 20:05] VITALS: BP 138/52
--- NOTE | 2018-12-26 20:05 | NUR ---
A 83, admitted to 5E, under the services of Dr. ULYSSES NAGY,NELSON Israel with a diagnosis of UTI, DIZZINESS, ANEMIA. Chief complaint is DIZZINESS. Patient arrived via wheel chair from ER. Monitor applied. Initial assessment completed. Vital signs taken and recorded. DR. ULYSSES NAGY,NELSON Israel notified of admission to the unit. Orders received. See assessment for past medical history, medications and allergies. Patient and/or family oriented to unit. [address] visitation policy reviewed. Clothing/patient valuable form completed. KLAUS HANNA
--- NOTE | 2018-12-26 20:57 | NUR ---
3 SMALL SCABBED AREAS NOTED TO THE POSTERIOR ASPECT OF PATIENTS NECK. AREAS ARE REDDENED AND DRY WITH NO PAIN ASSOCIATED. PER PATIENT SHE "PICKS AT THEM" AND THAT THEY ARE CHRONIC. PHYSICIAN AWARE.
[2018-12-27] VITALS (11 sets, daily range): BP systolic 99–128; BP diastolic 54–78
--- NOTE | 2018-12-27 05:20 | NUR ---
STEVE CONTRERAS [id number] Please refer to the physician's history and physical for past medical history, comorbid conditions, and allergies. Diagnosis: UTI DIZZINESS ANEMIA Ger Score: 22,LOW OR NO RISK WOUND DESCRIPTIONS: Wound Number: 1 Location of the wound: posterior neck left side Thickness: Partial Size: 3.0cm x 2.1cm x <0.1cm Tunneling: none Undermining: none Sinus Tract: none Presence of Exudate: none Amount: None Color: Red Odor: None Periwound Skin Appearance: Normal Wound edges: approximated Pain (associated with wound): none at time of assessment How does patient state this happened? pt stated this is from her scratching Surface the patient is resting on: Isoflex SKIN PREVENTION RECOMMENDATION: 1. Pressure redistribution support surface as appropriate 2. Elevate heels 3. Remove boots/TEDS every shift and reapply 4. Head of bed 30 degrees as tolerated 5. Assess nutrition and hydration 6. Manage moisture 7. Avoid the use of containment devices while in bed 8. Use absorptive products on surfaces limit layers of linens on bed 9. Turn and reposition every 1-2 hours in bed and every 1 hour in chair as tolerated 10. Weight shifts every 15 minutes while up in chair 11. Offloading with pillows or device to keep heels elevated off bed 12. Monitor skin at least every shift 13. Inspect under medical devices twice a day WOUND TREATMENT RECOMMENDATIONS: Cleanse posterior neck left side with soap and water and apply aqauphor ointment daily.
[2018-12-27 06:21] LABS: BUN 15 mg/dl (7-24); CHLORIDE 112 mmol/L (98-107); CREATININE 0.74 mg/dL (0.55-1.02); POTASSIUM 4.1 mmol/L (3.5-5.1); SODIUM 143 mmol/L (136-145)
--- NOTE | 2018-12-27 06:21 | NUR ---
DR LINCOLN NOTIFIED OF NEW CONSULT.
[2018-12-27 06:22] LABS: BASO % 0.6 % (0.0-1.0); EOS # 0.3 10*3/uL (0.0-0.4); HEMATOCRIT 25.5 % (37.0-47.0); HEMOGLOBIN 7.1 g/dl (12.0-16.0); LYMPH # 2.6 10*3/uL (1.3-4.4); LYMPH % 40.5 % (27.0-41.0); MEAN CELL VOLUME 84.7 fl (81.0-99.0); MEAN CORPUSCULAR HGB 23.6 pg (27.0-31.0); MEAN CORPUSCULAR HGB CONC 27.8 g/dl (33.0-37.0); MEAN PLATELET VOLUME 9.4 fl (9.6-12.3); MONO # 0.5 10*3/uL (0.1-1.0); MONO % 8.1 % (3.0-9.0); NEUT % 46.5 % (47.0-73.0); PLATELET COUNT AUTOMATED 248 10*3/uL (130-400); RED BLOOD COUNT 3.01 10*6/uL (4.10-5.10); RED CELL DISTRI WIDTH 17.7 % (0-14.5); WHITE BLOOD COUNT 6.4 10*3/uL (4.8-10.8)
--- NOTE | 2018-12-27 09:00 | NUR ---
Wind Turbine Sheet Metal Worker in to see patient. She is a LTC resident at [facility] and plans to return there upon discharge. She is ambulatory at the home. Her daughter or granddaughter will transport on discharge. forensic social worker following.
--- NOTE | 2018-12-27 09:03 | NUR ---
ACQUISITION MARKETING COORDINATOR spoke with Patti at [facility]. When patient is medically stable will be able to return to [facility]. -EMILY Tinajero
--- NOTE | 2018-12-27 09:43 | NUR ---
DR ARORA UPDATED ON MORNING H&H AND DR LINCOLN'S PLAN OF CARE.
--- NOTE | 2018-12-27 19:15 | NUR ---
PER ADINA RUIZ. DR. LINCOLN STATED TO TRANSFUSE 1 UNIT OF [facility]S TONIGHT AND THE OTHER UNIT AT 10 AM TOMORROW.
--- NOTE | 2018-12-27 22:15 | NUR ---
UNIT OF PACKED CELLS STARTING TO TRANSFUSE.
[2018-12-28] VITALS (13 sets, daily range): BP systolic 95–132; BP diastolic 47–70
--- NOTE | 2018-12-28 | NUR ---
2347 PATIENT ACCIDENTLY PULLED IV OUT WHILE TURNING IN BED. IV RESTARTED AND BLOOD WAS RESUMED.
--- NOTE | 2018-12-28 00:48 | NUR ---
TRANSFUSION COMPLETED. PATIENT TOLERATED WELL.
[2018-12-28 06:17] LABS: BASO # 0.1 10*3/uL (0.0-0.1); BASO % 0.8 % (0.0-1.0); EOS # 0.2 10*3/uL (0.0-0.4); EOS % 2.8 % (1.0-4.0); HEMATOCRIT 28.9 % (37.0-47.0); HEMOGLOBIN 8.2 g/dl (12.0-16.0); LYMPH # 2.4 10*3/uL (1.3-4.4); LYMPH % 31.3 % (27.0-41.0); MEAN CORPUSCULAR HGB 24.7 pg (27.0-31.0); MEAN CORPUSCULAR HGB CONC 28.4 g/dl (33.0-37.0); MEAN PLATELET VOLUME 9.4 fl (9.6-12.3); MONO # 0.7 10*3/uL (0.1-1.0); MONO % 9.1 % (3.0-9.0); NEUT # 4.3 10*3/uL (2.3-7.9); NEUT % 55.6 % (47.0-73.0); PLATELET COUNT AUTOMATED 265 10*3/uL (130-400); RED BLOOD COUNT 3.32 10*6/uL (4.10-5.10); RED CELL DISTRI WIDTH 17.6 % (0-14.5); WHITE BLOOD COUNT 7.8 10*3/uL (4.8-10.8)
--- NOTE | 2018-12-28 17:09 | NUR ---
Shift chart check completed.
--- NOTE | 2018-12-28 21:39 | NUR ---
PATIENT MEDICATED SLOWLY WITH DILAUDID PER PRN ORDER FOR C/O STOMACHE PAIN. RATED PAIN A 5/10 WITH 10 BEING THE WORST. SEE EMAR. REINFORCED USE OF CALL LIGHT.
--- NOTE | 2018-12-28 22:24 | NUR ---
PATIENT STATING THAT SHE IS NOW FEELING BETTER.
[2018-12-29] VITALS: BP 91/51
--- NOTE | 2018-12-29 00:42 | NUR ---
24 HR chart check completed.
[2018-12-29 05:53] LABS: BASO % 0.6 % (0.0-1.0); EOS # 0.2 10*3/uL (0.0-0.4); EOS % 3.1 % (1.0-4.0); HEMOGLOBIN 9.4 g/dl (12.0-16.0); LYMPH # 2.8 10*3/uL (1.3-4.4); LYMPH % 43.3 % (27.0-41.0); MEAN CORPUSCULAR HGB 25.3 pg (27.0-31.0); MEAN CORPUSCULAR HGB CONC 29.4 g/dl (33.0-37.0); MONO # 0.6 10*3/uL (0.1-1.0); MONO % 9.8 % (3.0-9.0); NEUT # 2.8 10*3/uL (2.3-7.9); NEUT % 42.7 % (47.0-73.0); PLATELET COUNT AUTOMATED 230 10*3/uL (130-400); RED BLOOD COUNT 3.72 10*6/uL (4.10-5.10); RED CELL DISTRI WIDTH 17.4 % (0-14.5); WHITE BLOOD COUNT 6.5 10*3/uL (4.8-10.8)
[2018-12-29 06:00] LABS: BUN 16 mg/dl (7-24); CHLORIDE 111 mmol/L (98-107); POTASSIUM 3.9 mmol/L (3.5-5.1); SODIUM 143 mmol/L (136-145)
[2018-12-29 08:00] VITALS: BP 132/76
[2018-12-29] MEDS ORDERED: CIPRO500 MG PO (09:00)
[2018-12-29] MEDS ORDERED: CEFUROXIME AXE250 MG PO (09:06)
--- NOTE | 2018-12-29 11:54 | NUR ---
PATIENT REQUESTING MEDICATION FOR HEADACHE. TYLENOL ADMINISTERED PRESCRIBED. WILL MONITOR FOR EFFECTIVENESS.
[2018-12-29 12:00] VITALS: BP 110/54
--- NOTE | 2018-12-29 12:30 | NUR ---
PATIENT REFUSES TO HAVE PICTURES TAKE OF SCABS ON NECK. STATES THEY ARE HEALED.
--- NOTE | 2018-12-29 12:50 | NUR ---
REPORT GIVEN TO MARGARET AT [facility].
--- NOTE | 2018-12-29 13:00 | NUR ---
Discharge instructions reviewed with patient/family. Patient receptive and verbalizes understanding. Follow-up care arranged. Written instructions given to patient/family. DISCHARGED TO [facility]IA [facility].BELONGINGS SENT WITH PATIENT. MELODIE CANALES
== END 2018-12-29 13:00 | disposition other institution (70) | DRG 374 ==
LOC: ED 17:10 → EDHOLD 19:11 → 5E 19:11
PROVIDERS: Emergency Medicine; Internal Medicine; ADMIT Internal Medicine
PROC: 0DB78ZX Excision of Stomach, Pylorus, Via Natural or Artificial Opening Endoscopic, Diagnostic (ICD-10-PCS; principal; 2018-12-27)
PROC: 30233N1 Transfusion of Nonautologous Red Blood Cells into Peripheral Vein, Percutaneous Approach (ICD-10-PCS; principal; 2018-12-27)
PROC: 0DB68ZX Excision of Stomach, Via Natural or Artificial Opening Endoscopic, Diagnostic (ICD-10-PCS; principal; 2018-12-27)
PROC: 0DBH8ZX Excision of Cecum, Via Natural or Artificial Opening Endoscopic, Diagnostic (ICD-10-PCS; principal; 2018-12-27)
DX: C18.0 Malignant neoplasm of cecum (principal); K29.71 Gastritis, unspecified, with bleeding; K25.4 Chronic or unspecified gastric ulcer with hemorrhage; K57.31 Diverticulosis of large intestine without perforation or abscess with bleeding; N39.0 Urinary tract infection, site not specified; F33.0 Major depressive disorder, recurrent, mild; D50.9 Iron deficiency anemia, unspecified; G30.1 Alzheimer's disease with late onset; F02.80 Dementia in other diseases classified elsewhere, unspecified severity, without behavioral disturbance, psychotic disturbance, mood disturbance, and anxiety; D63.8 Anemia in other chronic diseases classified elsewhere; I10 Essential (primary) hypertension; K44.9 Diaphragmatic hernia without obstruction or gangrene; E78.2 Mixed hyperlipidemia; B96.20 Unspecified Escherichia coli [E. coli] as the cause of diseases classified elsewhere; K21.9 Gastro-esophageal reflux disease without esophagitis; M19.90 Unspecified osteoarthritis, unspecified site; Z87.440 Personal history of urinary (tract) infections; Z90.711 Acquired absence of uterus with remaining cervical stump; Z82.49 Family history of ischemic heart disease and other diseases of the circulatory system; Z82.0 Family history of epilepsy and other diseases of the nervous system; Z91.81 History of falling; Z83.3 Family history of diabetes mellitus; Z82.3 Family history of stroke

== ENCOUNTER 2019-08-20 07:46 | Emergency (ER) | payer MEDICARE, OTHER ==
[~2019-08-20] VITALS: Ht 99.1 cm; Wt 86.2 kg
[~2019-08-20 07:46] MED LIST changes: +CEFUROXIME AXE250 MG PO; +CIPRO500 MG PO
[2019-08-20 08:44] LABS: BASO % 0.6 % (0.0-1.0); EOS # 0.1 10*3/uL (0.0-0.4); HEMATOCRIT 41.8 % (37.0-47.0); HEMOGLOBIN 14.2 g/dl (12.0-16.0); LYMPH # 1.9 10*3/uL (1.3-4.4); LYMPH % 29.8 % (27.0-41.0); MEAN CELL VOLUME 103.5 fl (81.0-99.0); MEAN CORPUSCULAR HGB 35.1 pg (27.0-31.0); MONO # 0.6 10*3/uL (0.1-1.0); MONO % 9.2 % (3.0-9.0); NEUT # 3.7 10*3/uL (2.3-7.9); NEUT % 58.1 % (47.0-73.0); PLATELET COUNT AUTOMATED 201 10*3/uL (130-400); RED BLOOD COUNT 4.04 10*6/uL (4.10-5.10); RED CELL DISTRI WIDTH 12.6 % (0-14.5); WHITE BLOOD COUNT 6.4 10*3/uL (4.8-10.8)
[2019-08-20 09:01] LABS: ALBUMIN 3.2 gm/dl (3.1-4.5); ALKALINE PHOSPHATASE 114 U/L (45-117); BUN 16 mg/dl (7-24); CHLORIDE 108 mmol/L (98-107); CREATININE 0.84 mg/dL (0.55-1.02); POTASSIUM 3.9 mmol/L (3.5-5.1); SGOT/AST 17 IU/L (3-35); SGPT/ALT 24 U/L (12-78); SODIUM 141 mmol/L (136-145); TOTAL PROTEIN 7.1 gm/dL (6.4-8.2)
[2019-08-20 09:24] LABS: BILIRUBIN NEGATIVE (NEGATIVE); BLOOD 1+ (NEGATIVE); CLARITY CLOUDY (CLEAR); COLOR YELLOW (YELLOW); EPITHELIAL CELLS 15-20; GLUCOSE NEGATIVE (NEGATIVE); KETONE NEGATIVE (NEGATIVE); LEUKO ESTERASE TRACE (NEGATIVE); NITRITE POSITIVE (NEGATIVE); UROBILINOGEN 0.2 E.U./dl (0.2-1.0); WBC 31-40 wbc/hpf (0-5)
[2019-08-20 09:25] LABS: BACTERIA 4+; MUCOUS 2+
[2019-08-20] MEDS ORDERED: SEPTDS PO (09:48)
[2019-08-20 10:04] VITALS: BP 141/71
== END 2019-08-20 10:20 | disposition home or self-care (01) ==
LOC: ED 07:46
PROVIDERS: Emergency Medicine
DX: N39.0 Urinary tract infection, site not specified (principal); I10 Essential (primary) hypertension; M19.90 Unspecified osteoarthritis, unspecified site; Z79.899 Other long term (current) drug therapy

== ENCOUNTER 2019-12-15 17:39 | Inpatient (IN) | payer MEDICARE, OTHER ==
[~2019-12-15] VITALS: Ht 160 cm; Wt 75.0 kg
[~2019-12-15 17:39] MED LIST changes: +SEPTDS PO
[2019-12-15 17:43] VITALS: BP 126/70
[2019-12-15 18:33] LABS: BASO # 0.1 10*3/uL (0.0-0.1); BASO % 0.5 % (0.0-1.0); EOS # 0.1 10*3/uL (0.0-0.4); EOS % 0.9 % (1.0-4.0); LYMPH # 2.6 10*3/uL (1.3-4.4); LYMPH % 27.7 % (27.0-41.0); MEAN CORPUSCULAR HGB 33.2 pg (27.0-31.0); MEAN CORPUSCULAR HGB CONC 33.8 g/dl (33.0-37.0); MEAN PLATELET VOLUME 8.8 fl (9.6-12.3); MONO # 0.8 10*3/uL (0.1-1.0); MONO % 8.5 % (3.0-9.0); NEUT # 5.8 10*3/uL (2.3-7.9); NEUT % 62.2 % (47.0-73.0); PLATELET COUNT AUTOMATED 274 10*3/uL (130-400); RED BLOOD COUNT 3.98 10*6/uL (4.10-5.10); RED CELL DISTRI WIDTH 12.5 % (0-14.5); WHITE BLOOD COUNT 9.3 10*3/uL (4.8-10.8)
--- NOTE | 2019-12-15 18:46 | NUR ---
PATIENT REMINDED THAT WE NEED A URINE SAMPLE.
[2019-12-15 18:47] LABS: ALBUMIN 2.8 gm/dl (3.1-4.5); ALKALINE PHOSPHATASE 176 U/L (45-117); BUN 15 mg/dl (7-24); CHLORIDE 103 mmol/L (98-107); CREATININE 0.86 mg/dL (0.55-1.02); POTASSIUM 3.9 mmol/L (3.5-5.1); SGOT/AST 33 IU/L (3-35); SGPT/ALT 33 U/L (12-78); SODIUM 137 mmol/L (136-145); TOTAL PROTEIN 7.4 gm/dL (6.4-8.2)
[2019-12-16 02:01] VITALS: BP 132/78
[2019-12-16 02:15] VITALS: BP 162/77
--- NOTE | 2019-12-16 02:15 | NUR ---
Time: 214 A 84 FEMALE year old admitted to 5E under services of DR. ULYSSES NAGY,NELSON Vargas Pt. arrived via stretcher from ER. Chief complaint: DYSPNEA, AMS HX DEMENTIA. RENARD HUNG
[2019-12-16] MEDS ORDERED: PAIN RELIEVER650 MG PO (02:42)
[2019-12-16] MEDS ORDERED: CRANBERRY200 MG PO (02:42)
[2019-12-16] MEDS ORDERED: IRON325 M1 PO (02:43)
[2019-12-16] MEDS ORDERED: MELATONIN5 M6 PO (03:02)
[2019-12-16] MEDS ORDERED: NORCO 5-325 TA1 EACH PO (03:03)
[2019-12-16] MEDS ORDERED: NAMENDA10 MG PO (03:03)
[2019-12-16] MEDS ORDERED: PREDNISOLONE ACE5 M5 OP (03:04)
--- NOTE | 2019-12-16 03:48 | NUR ---
DR ARORA NOTIFIED OF ADMISION TO FLOOR & ORDERS REC'D
[2019-12-16 06:30] LABS: BACTERIA 2+; BILIRUBIN NEGATIVE (NEGATIVE); BLOOD 3+ (NEGATIVE); CLARITY CLEAR (CLEAR); COLOR YELLOW (YELLOW); GLUCOSE NEGATIVE (NEGATIVE); KETONE NEGATIVE (NEGATIVE); LEUKO ESTERASE 2+ (NEGATIVE); NITRITE NEGATIVE (NEGATIVE); RBC 0-2 rbc/hpf (0-2); UROBILINOGEN 0.2 E.U./dl (0.2-1.0)
[2019-12-16 08:00] VITALS: BP 150/75
--- NOTE | 2019-12-16 09:12 | NUR ---
PATIENT IS LTC AT [facility]. PATIENT WILL REQUIRE COVID TESTING BEFORE RETURNING TO [facility] WHEN MEDICALLY STABLE.
--- NOTE | 2019-12-16 10:55 | NUR ---
Reached out to daughter to discuss discharge planning. Left message. Awaiting return call.
--- NOTE | 2019-12-16 11:30 | NUR ---
DR. HALE NOTIFIED OF CONSULT
[2019-12-16 12:00] VITALS: BP 128/68
--- NOTE | 2019-12-16 12:24 | NUR ---
Received call from daughterReema. Discussed discharge planning. Daughter would like a hospice consult. Dr. Austin notified. Daughter would like to come in and see patient. Discussed with inpatient nurse restaurant kitchen manager and received clearance for the daughter to visit.
--- NOTE | 2019-12-16 12:31 | NUR ---
New orders received from Dr. Austin for [facility] to follow at [facility]. Probable discharge tomorrow. button station worker notified.
--- NOTE | 2019-12-16 12:42 | NUR ---
[employer] FAXED HOSPICE REFERRAL TO [facility].
--- NOTE | 2019-12-16 14:38 | NUR ---
Test Rider in to see patient. Daughter at bedside. She is a LTC resident at [facility] and plans to return there upon discharge. Discussed [facility]. Daughter states Sav and Johanne from [facility] have already reached out to her. Informed patient and daughter of possible discharge tomorrow back to [facility] with hospice. Both verbalized an understanding.
[2019-12-16 16:00] VITALS: BP 153/80
[2019-12-16 20:00] VITALS: BP 150/80
[2019-12-17] VITALS: BP 135/69
[2019-12-17 08:00] VITALS: BP 130/82
--- NOTE | 2019-12-17 08:12 | NUR ---
ASSESSMENT COMPLETE WITH NO INCIDENCE. PT IS SLEEPING AND AWAKENS EASILY. ST STATES SHE IS STILL FEELING SOB. WHEN ASKING IF SHE IS HAVING CHEST PAIN, DIZZINESS, DIARRHEA, HERNANDEZ SHE STATES YES TO ALL OF THE ABOVE, PT APPEARS TO BE CONFUSED AND DOES NOT KNOW WHERE SHE IS AT. CALL LIGHT IS WITHIN HER REACH, WILL CONTINUE TO MONITOR.
--- NOTE | 2019-12-17 09:04 | NUR ---
DR HALE IN TO SEE PATIENT
[2019-12-17] MEDS ORDERED: ATIVAN ORAL C2 MG/ML PO (10:57)
[2019-12-17] MEDS ORDERED: MORPHINE S100 MG/5 M PO (10:57)
[2019-12-17] MEDS ORDERED: Ipratropium Brom3 ML NEB (10:57)
--- NOTE | 2019-12-17 11:00 | NUR ---
Spoke to Dr. Austin regarding discharge planning. He plans on discharging the patient as long as patient is cleared by Dr. Lentz. Awaiting Dr. Lentz's input.
[2019-12-17 12:00] VITALS: BP 111/62
[2019-12-17 16:00] VITALS: BP 133/80
--- NOTE | 2019-12-17 16:30 | NUR ---
GRANDDAUGHTER CALLED AND RECEIVED UPDATE ON PATIENT
--- NOTE | 2019-12-17 18:01 | NUR ---
CALLED DR ARORA TO LET HIM KNOW THAT THE PT IV SITE WENT BAD, HE STATES TO [place] IV ORDER TO PO
[2019-12-17 20:00] VITALS: BP 154/85
[2019-12-18] VITALS: BP 142/74
--- NOTE | 2019-12-18 07:57 | NUR ---
DR. HALE NOTE IS IN, PATIENT CAN GO TO [facility] TODAY. [employer] FAXED UPDATES TO [facility].
[2019-12-18 08:00] VITALS: BP 124/54
--- NOTE | 2019-12-18 08:11 | NUR ---
ASSESSMENT COMPLETE. PT WAS SLEEPING BUT AWAKENS EASILY. SHE HAS NO COMPLAINTS AT THIS TIME. IS CONFUSED TO TIME AND PLACE,IS NOT SURE WHAT YEAR SHE WAS BORN. RESPIRATIONS ARE RELAXED AND REGULAR. CALL LIGHT NEAR PATIENT, WILL CONTINUE TO MONITOR
--- NOTE | 2019-12-18 08:58 | NUR ---
SPOKE TO CASE MANAGEMENT AND PT IS CLEARED TO GO BACK TO [facility]. WILL HAVE TRANSPORTATION SET UP BY NOON TODAY
--- NOTE | 2019-12-18 09:07 | NUR ---
REAL ESTATE TRANSACTION COORDINATOR NOTIFIED OF PATIENT DISCHARGE. REAL ESTATE TRANSACTION COORDINATOR SPOKE WITH JOSEPH ENRIQUEZ. REAL ESTATE TRANSACTION COORDINATOR ARRANGED FOR A 12PM TRANSPORT WITH [facility]. REAL ESTATE TRANSACTION COORDINATOR NOTIFIED [facility], [facility],WORK TRACK RIDERErika EATON, AND PATIENTS DAUGHTER OF TRANSPORT. REAL ESTATE TRANSACTION COORDINATOR WILL FAX DISCHARGE ORDERS TO [facility].
--- NOTE | 2019-12-18 11:54 | NUR ---
PT LEAVING THE FLOOR AT THIS TIME WITH [facility]
--- NOTE | 2019-12-18 12:02 | NUR ---
SPOKE TO PRISCILA FROM [facility] TO GIVE REPORT
== END 2019-12-18 12:00 | DRG 374 ==
LOC: ED 17:39 → 5E 12-16 00:39 → EDHOLD 12-16 00:39 → 5E 12-16 01:10
PROVIDERS: Nurse Practitioner Family; ADMIT Internal Medicine
DX: C18.0 Malignant neoplasm of cecum (principal); J18.9 Pneumonia, unspecified organism; C78.00 Secondary malignant neoplasm of unspecified lung; C78.7 Secondary malignant neoplasm of liver and intrahepatic bile duct; N39.0 Urinary tract infection, site not specified; F33.0 Major depressive disorder, recurrent, mild; J44.1 Chronic obstructive pulmonary disease with (acute) exacerbation; J44.0 Chronic obstructive pulmonary disease with (acute) lower respiratory infection; E44.1 Mild protein-calorie malnutrition; F02.80 Dementia in other diseases classified elsewhere, unspecified severity, without behavioral disturbance, psychotic disturbance, mood disturbance, and anxiety; G30.1 Alzheimer's disease with late onset; B96.20 Unspecified Escherichia coli [E. coli] as the cause of diseases classified elsewhere; R31.9 Hematuria, unspecified; Z20.828 Contact with and (suspected) exposure to other viral communicable diseases; E78.2 Mixed hyperlipidemia; I10 Essential (primary) hypertension; Z66 Do not resuscitate; Z51.5 Encounter for palliative care; K21.9 Gastro-esophageal reflux disease without esophagitis; M19.90 Unspecified osteoarthritis, unspecified site; Z82.49 Family history of ischemic heart disease and other diseases of the circulatory system; Z68.29 Body mass index [BMI] 29.0-29.9, adult; Z82.0 Family history of epilepsy and other diseases of the nervous system; Z90.710 Acquired absence of both cervix and uterus; Z87.891 Personal history of nicotine dependence

== ENCOUNTER 2020-01-23 18:22 | Emergency (ER) | payer MEDICARE, OTHER ==
[~2020-01-23 18:22] MED LIST changes: +ATIVAN ORAL C2 MG/ML PO; +CRANBERRY200 MG PO; +IRON325 M1 PO; +Ipratropium Brom3 ML NEB; +MELATONIN5 M6 PO; +MORPHINE S100 MG/5 M PO; +NAMENDA10 MG PO; +NORCO 5-325 TA1 EACH PO; +PAIN RELIEVER650 MG PO; +PREDNISOLONE ACE5 M5 OP
[2020-01-23 18:23] VITALS: BP 129/89
== END 2020-01-23 21:32 ==
LOC: ED 18:22
DX: S80.02XA Contusion of left knee, initial encounter (principal); S09.90XA Unspecified injury of head, initial encounter; I12.9 Hypertensive chronic kidney disease with stage 1 through stage 4 chronic kidney disease, or unspecified chronic kidney disease; N18.9 Chronic kidney disease, unspecified; E78.5 Hyperlipidemia, unspecified; M19.90 Unspecified osteoarthritis, unspecified site; F41.9 Anxiety disorder, unspecified; K21.9 Gastro-esophageal reflux disease without esophagitis; Z79.899 Other long term (current) drug therapy; Z90.710 Acquired absence of both cervix and uterus; W19.XXXA Unspecified fall, initial encounter; Y93.89 Activity, other specified; Y92.89 Other specified places as the place of occurrence of the external cause; Y99.8 Other external cause status